=== PATIENT | female | born 1940 | race Caucasian/White ===

== ENCOUNTER 2021-01-26 18:02 | Inpatient (IN) ==
[2021-01-26 19:07] LABS: Basophils % 1.1 %; Eosinophils % 0.4 %; Hematocrit 27.4 % (35.3-44.9); Immature Granulocytes % 0.4 % (0-4); Lymphocytes # 0.6 K/mcL (0.6-4.6); Lymphocytes % 20.4 %; Mean Corpuscular HGB Conc 32.8 g/dL (31.6-35.5); Mean Corpuscular Hemoglobin 30.2 pg (28.0-33.3); Mean Corpuscular Volume 91.9 fL (83.0-100.0); Mean Platelet Volume 10.9 fL (9.4-12.4); Monocytes # 0.6 K/mcL (0.0-1.3); Monocytes % 21.5 %; Neutrophils # 1.6 K/mcL (1.6-8.9); Platelet Count 148 K/mcL (140-400); Red Blood Count 2.98 M/mcL (3.82-4.97); Red Cell Distribution Width 13.8 % (11.5-14.5); Segmented Neutrophils % 56.2 %; White Blood Count 2.8 K/mcL (4.3-11.1)
[2021-01-26 19:17] LABS: INR 5.8; Prothrombin Time 63.7 Seconds (9.4-12.1)
[2021-01-26 19:37] LABS: Albumin 3.4 g/dL (3.5-5.7); Albumin/Globulin Ratio 1.4 (1.1-2.2); Bilirubin,Direct 0.2 mg/dL (0.0-0.2); Bilirubin,Indirect 0.6 mg/dL (0.0-1.0); Bilirubin,Total 0.8 mg/dL (0.3-1.0); Calcium 7.5 mg/dL (8.6-10.3); Globulin 2.4 g/dL (2.4-3.5); Potassium 3.8 mEq/L (3.5-5.1); Total Protein 5.8 g/dL (6.4-8.9); Troponin I 0.07 ng/mL (< 0.04)
[2021-01-26] MEDS ORDERED: Naloxone 0.4 MG/ML INJ IVP PRN (20:54)
[2021-01-26] MEDS ORDERED: Ondansetron 4 MG/2 ML VIAL IVP PRN (20:54)
[2021-01-26] MEDS ORDERED: Azithromycin 500 MG in 0.9 % Sodium Chloride 250 ML IVPB SCH (21:00)
[2021-01-27] MEDS ORDERED: Cefdinir 300 MG CAPSULE PO ONE (00:59)
[2021-01-27] MEDS: cefTRIAXone 2,000 MG in Water for inj. (sterile) 20 ML IVP SCH ×2 (01:33→21:08)
[2021-01-27] MEDS: Pantoprazole 40 MG VIAL IVP SCH ×3 (01:33→18:08)
[2021-01-27] MEDS: Azithromycin 250 MG TABLET PO SCH (01:33)
[2021-01-27 03:22] LABS: Hematocrit 29.6 % (35.3-44.9); Hemoglobin 9.7 g/dL (11.5-15.4); Mean Corpuscular HGB Conc 32.8 g/dL (31.6-35.5); Mean Corpuscular Hemoglobin 30.1 pg (28.0-33.3); Mean Corpuscular Volume 91.9 fL (83.0-100.0); Mean Platelet Volume 11.1 fL (9.4-12.4); Platelet Count 165 K/mcL (140-400); Red Blood Count 3.22 M/mcL (3.82-4.97); White Blood Count 3.5 K/mcL (4.3-11.1)
[2021-01-27 03:34] LABS: Prothrombin Time 65.6 Seconds (9.4-12.1)
[2021-01-27 03:43] LABS: Calcium 7.8 mg/dL (8.6-10.3); Phosphorous 5.9 mg/dL (2.7-4.5)
[2021-01-27 03:55] LABS: Troponin I 0.08 ng/mL (< 0.04)
[2021-01-27] MEDS ORDERED: *HR* Heparin 10,000 UNIT/10 ML VIAL IV PRN (08:20)
[2021-01-27] MEDS ORDERED: 0.9 % Sodium Chloride 250 ML IVC PRN (08:20)
[2021-01-27] MEDS ORDERED: 0.9 % Sodium Chloride 1,000 ML PRIME SCH (08:30)
[2021-01-27 09:59] LABS: Hepatitis B Surface Antibody 20.49 mIU/mL
[2021-01-27 10:10] LABS: Hepatitis B Surface Antigen Nonreactive (Nonreactive)
[2021-01-27] MEDS: hydrALAZINE 25 MG TABLET PO SCH ×2 (10:39→21:08)
[2021-01-27 12:56] LABS: Bilirubin,Urine Negative (Negative); Blood,Urine Negative (Negative); Clarity,Urine Clear (Clear); Color,Urine Yellow (Yellow); Glucose,Urine (UA) Normal (Normal); Hyaline Casts,Urine Many per lpf (None Seen); Ketones,Urine Negative (Negative); Leukocyte Esterase,Urine Trace (Negative); Mucus,Urine Few per lpf (None-Few); Nitrite,Urine Negative (Negative); PH,Urine 5.5 pH Units (5.0-8.0); Protein,Urine Trace mg/dL (Neg-Trace); RBC,Urine 0-3 per hpf (0-3); Specific Gravity,Urine 1.024 (1.010-1.025); Squamous Epithelial Cell,Urine Few per hpf (None-Few); Transitional Epi Cells,Urine Few per hpf (None-Few); Urobilinogen,Urine Normal (Normal)
[2021-01-27] MEDS: Acetaminophen 325 MG TABLET PO PRN (18:18)
[2021-01-27] MEDS ORDERED: Melatonin 3 MG TABLET PO PRN (22:56)
[2021-01-28] MEDS: Acetaminophen 325 MG TABLET PO PRN (00:11)
[2021-01-28] MEDS ORDERED: Perflutren Lipid Microsphere 1.3 ML in 0.9 % Sodium Chloride 8.7 ML IVP PRN (02:16)
[2021-01-28 02:46] LABS: Hemoglobin 10.2 g/dL (11.5-15.4); Mean Corpuscular HGB Conc 32.9 g/dL (31.6-35.5); Mean Corpuscular Hemoglobin 29.9 pg (28.0-33.3); Mean Corpuscular Volume 90.9 fL (83.0-100.0); Mean Platelet Volume 10.7 fL (9.4-12.4); Platelet Count 169 K/mcL (140-400); Red Blood Count 3.41 M/mcL (3.82-4.97); Red Cell Distribution Width 13.8 % (11.5-14.5); White Blood Count 3.2 K/mcL (4.3-11.1)
[2021-01-28 03:08] LABS: Calcium 7.9 mg/dL (8.6-10.3); Potassium 3.5 mEq/L (3.5-5.1)
[2021-01-28] MEDS: Pantoprazole 40 MG VIAL IVP SCH ×2 (06:34→17:10)
[2021-01-28 09:28] LABS: INR 4.1
[2021-01-28 09:35] LABS: Prothrombin Time 45.1 Seconds (9.4-12.1)
[2021-01-28] MEDS: hydrALAZINE 25 MG TABLET PO SCH ×2 (10:07→21:07)
[2021-01-28] MEDS: Calcium Acetate 667 MG CAPSULE PO SCH ×3 (10:07→17:10)
[2021-01-28] MEDS: Azithromycin 250 MG TABLET PO SCH (10:07)
[2021-01-28] MEDS: cefTRIAXone 2,000 MG in Water for inj. (sterile) 20 ML IVP SCH (20:57)
[2021-01-29 03:13] LABS: Hemoglobin 11.1 g/dL (11.5-15.4); Mean Corpuscular HGB Conc 33.6 g/dL (31.6-35.5); Mean Corpuscular Hemoglobin 30.9 pg (28.0-33.3); Mean Corpuscular Volume 91.9 fL (83.0-100.0); Mean Platelet Volume 11.7 fL (9.4-12.4); Platelet Count 193 K/mcL (140-400); Red Blood Count 3.59 M/mcL (3.82-4.97); Red Cell Distribution Width 13.7 % (11.5-14.5)
[2021-01-29 03:26] LABS: INR 5.1; Prothrombin Time 56.6 Seconds (9.4-12.1)
[2021-01-29 03:33] LABS: Calcium 8.5 mg/dL (8.6-10.3); Potassium 3.8 mEq/L (3.5-5.1)
[2021-01-29] MEDS: Pantoprazole 40 MG VIAL IVP SCH (05:03)
[2021-01-29] MEDS ORDERED: 0.9 % Sodium Chloride 250 ML IVC PRN (07:32)
[2021-01-29] MEDS ORDERED: *HR* Heparin 10,000 UNIT/10 ML VIAL IV PRN (07:32)
[2021-01-29] MEDS ORDERED: 0.9 % Sodium Chloride 1,000 ML PRIME SCH (07:45)
[2021-01-29] MEDS: Azithromycin 250 MG TABLET PO SCH (08:25)
[2021-01-29] MEDS: Calcium Acetate 667 MG CAPSULE PO SCH ×3 (08:25→16:57)
[2021-01-29] MEDS: hydrALAZINE 25 MG TABLET PO SCH (08:26)
[2021-01-29] MEDS: Metoprolol XL (24 HR) Succ 25 MG TAB.ER.24H PO SCH (08:27)
[2021-01-29] MEDS ORDERED: Perflutren Lipid Microsphere 1.3 ML in 0.9 % Sodium Chloride 8.7 ML IVP PRN (08:56)
[2021-01-29] MEDS: cefTRIAXone 2,000 MG in Water for inj. (sterile) 20 ML IVP SCH (21:40)
[2021-01-30 02:38] LABS: Basophils % 0.4 %; Eosinophils % 0.2 %; Hematocrit 34.5 % (35.3-44.9); Hemoglobin 11.3 g/dL (11.5-15.4); Immature Granulocytes % 0.7 % (0-4); Lymphocytes % 21.3 %; Mean Corpuscular HGB Conc 32.8 g/dL (31.6-35.5); Mean Corpuscular Hemoglobin 30.3 pg (28.0-33.3); Mean Corpuscular Volume 92.5 fL (83.0-100.0); Mean Platelet Volume 11.7 fL (9.4-12.4); Monocytes # 0.6 K/mcL (0.0-1.3); Monocytes % 13.4 %; Neutrophils # 2.9 K/mcL (1.6-8.9); Platelet Count 194 K/mcL (140-400); Red Blood Count 3.73 M/mcL (3.82-4.97); Red Cell Distribution Width 13.7 % (11.5-14.5); White Blood Count 4.6 K/mcL (4.3-11.1)
[2021-01-30 02:49] LABS: INR 1.1; Prothrombin Time 12.6 Seconds (9.4-12.1)
[2021-01-30 02:57] LABS: Calcium 8.8 mg/dL (8.6-10.3); Large Platelets Present (Not Present); Platelet Estimate Normal (Normal); Potassium 3.5 mEq/L (3.5-5.1)
[2021-01-30] MEDS: Calcium Acetate 667 MG CAPSULE PO SCH ×3 (07:58→16:44)
[2021-01-30] MEDS: Azithromycin 250 MG TABLET PO SCH (07:58)
[2021-01-30] MEDS: Metoprolol XL (24 HR) Succ 25 MG TAB.ER.24H PO SCH (07:58)
[2021-01-30] MEDS ORDERED: *HR* Heparin 5,000 UNIT/ML VIAL IVP PRN ×2 (13:51)
[2021-01-30] MEDS ORDERED: *HR* Heparin 5,000 UNIT/ML VIAL IVP ONE (13:51)
[2021-01-30] MEDS ORDERED: Heparin 25,000UNIT/250ML 1/2NS 25,000 UNIT/250 ML IV.SOLN IVC SCH (14:00)
[2021-01-30 14:40] LABS: Hematocrit 35.6 % (35.3-44.9); Hemoglobin 11.6 g/dL (11.5-15.4); Mean Corpuscular HGB Conc 32.6 g/dL (31.6-35.5); Mean Corpuscular Hemoglobin 30.4 pg (28.0-33.3); Mean Corpuscular Volume 93.4 fL (83.0-100.0); Mean Platelet Volume 11.7 fL (9.4-12.4); Platelet Count 192 K/mcL (140-400); Red Blood Count 3.81 M/mcL (3.82-4.97); Red Cell Distribution Width 13.9 % (11.5-14.5); White Blood Count 4.4 K/mcL (4.3-11.1)
[2021-01-30 14:48] LABS: Heparin anti-factor XA UFH < 0.04 IU/mL (0.30-0.70)
[2021-01-30 14:49] LABS: Prothrombin Time 11.3 Seconds (9.4-12.1)
[2021-01-30] MEDS ORDERED: Warfarin perPT PO PRN (18:00)
[2021-01-30] MEDS ORDERED: *HR* Warfarin 2.5 MG TABLET PO ONE (18:00)
[2021-01-30] MEDS: cefTRIAXone 2,000 MG in Water for inj. (sterile) 20 ML IVP SCH (20:56)
[2021-01-31 05:14] LABS: Hemoglobin 11.3 g/dL (11.5-15.4); Mean Corpuscular HGB Conc 32.3 g/dL (31.6-35.5); Mean Corpuscular Hemoglobin 30.4 pg (28.0-33.3); Mean Corpuscular Volume 94.1 fL (83.0-100.0); Mean Platelet Volume 11.8 fL (9.4-12.4); Platelet Count 191 K/mcL (140-400); Red Blood Count 3.72 M/mcL (3.82-4.97); Red Cell Distribution Width 13.7 % (11.5-14.5)
[2021-01-31 05:24] LABS: INR 1.1; Prothrombin Time 12.4 Seconds (9.4-12.1)
[2021-01-31 05:32] LABS: Calcium 9.1 mg/dL (8.6-10.3); Potassium 3.6 mEq/L (3.5-5.1)
[2021-01-31] MEDS ORDERED: *HR* Heparin 10,000 UNIT/10 ML VIAL IV PRN (07:10)
[2021-01-31] MEDS ORDERED: 0.9 % Sodium Chloride 250 ML IVC PRN (07:10)
[2021-01-31] MEDS ORDERED: 0.9 % Sodium Chloride 1,000 ML PRIME SCH (07:15)
[2021-01-31] MEDS: Calcium Acetate 667 MG CAPSULE PO SCH ×3 (10:21→17:12)
[2021-01-31] MEDS: Metoprolol XL (24 HR) Succ 25 MG TAB.ER.24H PO SCH (13:32)
[2021-01-31] MEDS: Azithromycin 250 MG TABLET PO SCH (13:32)
[2021-01-31] MEDS: Apixaban 5 MG TABLET PO SCH ×2 (13:32→21:31)
[2021-01-31] MEDS ORDERED: *HR* Warfarin 2.5 MG TABLET PO ONE (18:00)
[2021-01-31] MEDS ORDERED: *HR* Warfarin 5 MG TABLET PO ONE (18:00)
[2021-01-31] MEDS: cefTRIAXone 2,000 MG in Water for inj. (sterile) 20 ML IVP SCH (21:30)
[2021-02-01 00:49] VITALS: BP 120/43
== END 2021-02-01 02:30 | DRG 177 ==
LOC: EMEROOARM 18:02 → 2NENU 18:02 → SUATTDRO 20:52 → 2NENU 22:10 → SUATTDRO 01-27 17:18
PROVIDERS: ADMIT Family Medicine; ATTEND Internal Medicine

== ENCOUNTER 2021-02-18 09:32 | Observation (INO) ==
[2021-02-18 10:45] LABS: Hematocrit 23.9 % (35.3-44.9); Hemoglobin 7.8 g/dL (11.5-15.4); Mean Corpuscular HGB Conc 32.6 g/dL (31.6-35.5); Mean Corpuscular Hemoglobin 31.2 pg (28.0-33.3); Mean Corpuscular Volume 95.6 fL (83.0-100.0); Mean Platelet Volume 11.1 fL (9.4-12.4); Platelet Count 177 K/mcL (140-400); White Blood Count 6.1 K/mcL (4.3-11.1)
[2021-02-18 11:04] LABS: INR 1.8; Prothrombin Time 20.1 Seconds (9.4-12.1)
[2021-02-18 11:07] LABS: Albumin 3.5 g/dL (3.5-5.7); Albumin/Globulin Ratio 1.3 (1.1-2.2); Calcium 8.7 mg/dL (8.6-10.3); Globulin 2.8 g/dL (2.4-3.5); Potassium 3.7 mEq/L (3.5-5.1); Total Protein 6.3 g/dL (6.4-8.9); Troponin I 0.04 ng/mL (< 0.04)
[2021-02-18] MEDS ORDERED: Isovue-370 500 ML BOTTLE IVP ONE (11:21)
[2021-02-18 11:34] LABS: Eosinophils # 0.2 K/mcL (0.0-0.6); Lymphocytes # 0.6 K/mcL (0.6-4.6); Monocytes # 0.4 K/mcL (0.0-1.3); Neutrophils # 4.9 K/mcL (1.6-8.9)
[2021-02-18 11:38] LABS: Platelet Estimate Normal (Normal)
[2021-02-18] MEDS ORDERED: 0.9 % Sodium Chloride 250 ML ONE (14:27)
[2021-02-18] MEDS ORDERED: Acetaminophen 325 MG TABLET PO PRN (15:10)
[2021-02-18] MEDS ORDERED: Naloxone 0.4 MG/ML INJ IVP PRN (15:10)
[2021-02-18] MEDS ORDERED: Ondansetron ODT 4 MG TAB.RAPDIS SL PRN (15:10)
[2021-02-18 23:43] LABS: Hematocrit 26.9 % (35.3-44.9); Hemoglobin 8.7 g/dL (11.5-15.4)
[2021-02-19 03:47] LABS: Hematocrit 27.7 % (35.3-44.9); Hemoglobin 9.2 g/dL (11.5-15.4); Mean Corpuscular HGB Conc 33.2 g/dL (31.6-35.5); Mean Corpuscular Hemoglobin 31.1 pg (28.0-33.3); Mean Corpuscular Volume 93.6 fL (83.0-100.0); Mean Platelet Volume 10.7 fL (9.4-12.4); Platelet Count 184 K/mcL (140-400); Red Blood Count 2.96 M/mcL (3.82-4.97); Red Cell Distribution Width 15.9 % (11.5-14.5); White Blood Count 5.1 K/mcL (4.3-11.1)
[2021-02-19 03:54] LABS: INR 1.3; Prothrombin Time 15.3 Seconds (9.4-12.1)
[2021-02-19 04:05] LABS: Calcium 8.6 mg/dL (8.6-10.3); Potassium 3.9 mEq/L (3.5-5.1)
[2021-02-19] MEDS ORDERED: Perflutren Lipid Microsphere 1.3 ML in 0.9 % Sodium Chloride 8.7 ML IVP PRN (05:00)
[2021-02-19] MEDS ORDERED: 0.9 % Sodium Chloride 2,000 ML ONE (06:39)
[2021-02-19] MEDS ORDERED: 0.9 % Sodium Chloride 250 ML IVC PRN (07:37)
[2021-02-19] MEDS ORDERED: 0.9 % Sodium Chloride 1,000 ML PRIME SCH (07:45)
[2021-02-19] MEDS ORDERED: Calcium Acetate 667 MG CAPSULE PO PRN (11:00)
[2021-02-19] MEDS: Calcium Acetate 667 MG CAPSULE PO SCH ×2 (12:47→17:32)
[2021-02-19] MEDS: hydrALAZINE 25 MG TABLET PO SCH (21:25)
[2021-02-20 03:11] LABS: Basophils % 0.7 %; Eosinophils # 0.3 K/mcL (0.0-0.6); Eosinophils % 5.8 %; Hemoglobin 8.4 g/dL (11.5-15.4); Immature Granulocytes % 0.2 % (0-4); Lymphocytes % 24.1 %; Mean Corpuscular HGB Conc 32.3 g/dL (31.6-35.5); Mean Corpuscular Hemoglobin 30.4 pg (28.0-33.3); Mean Corpuscular Volume 94.2 fL (83.0-100.0); Monocytes # 0.9 K/mcL (0.0-1.3); Monocytes % 20.9 %; Neutrophils # 2.1 K/mcL (1.6-8.9); Platelet Count 161 K/mcL (140-400); Red Blood Count 2.76 M/mcL (3.82-4.97); Red Cell Distribution Width 15.9 % (11.5-14.5); Segmented Neutrophils % 48.3 %; White Blood Count 4.3 K/mcL (4.3-11.1)
[2021-02-20 03:25] LABS: Calcium 8.7 mg/dL (8.6-10.3); Potassium 3.2 mEq/L (3.5-5.1)
[2021-02-20 03:30] LABS: % Iron Saturation 15 % (15-50); Iron 28 mcg/dL (50-170); Magnesium 1.8 mg/dL (1.6-2.6); Transferrin 136 mg/dL (203-362)
[2021-02-20 04:03] LABS: Ferritin > 1500 ng/mL (10-120); Folate > 22.3 ng/mL (3.0-16.0); Vitamin B12 621 pg/mL (250-1100)
[2021-02-20] MEDS ORDERED: Iron Sucrose Complex 400 MG in 0.9 % Sodium Chloride 250 ML IVPB ONE (07:09)
[2021-02-20] MEDS ORDERED: Simethicone 40 MG/0.6 ML MLS IR ONE (09:24)
[2021-02-20] MEDS: Calcium Acetate 667 MG CAPSULE PO SCH ×3 (09:58→16:18)
[2021-02-20] MEDS: hydrALAZINE 25 MG TABLET PO SCH ×2 (09:58→22:17)
[2021-02-20] MEDS ORDERED: Isovue-370 500 ML BOTTLE IVP ONE (13:36)
[2021-02-20] MEDS ORDERED: Lidocaine -MPF 2% 5 ML VIAL SQ ONE (13:42)
[2021-02-20] MEDS ORDERED: *HR* Propofol 500 MG/50 ML BOTTLE IVP ONE (13:42)
[2021-02-20] MEDS: Apixaban 5 MG TABLET PO SCH (22:17)
[2021-02-21 05:07] LABS: Hematocrit 26.5 % (35.3-44.9); Hemoglobin 8.5 g/dL (11.5-15.4); Mean Corpuscular HGB Conc 32.1 g/dL (31.6-35.5); Mean Corpuscular Hemoglobin 30.8 pg (28.0-33.3); Mean Platelet Volume 10.7 fL (9.4-12.4); Platelet Count 182 K/mcL (140-400); Red Blood Count 2.76 M/mcL (3.82-4.97); Red Cell Distribution Width 15.9 % (11.5-14.5); White Blood Count 4.8 K/mcL (4.3-11.1)
[2021-02-21 05:38] LABS: Calcium 8.4 mg/dL (8.6-10.3); Potassium 4.5 mEq/L (3.5-5.1)
[2021-02-21] MEDS ORDERED: 0.9 % Sodium Chloride 250 ML IVC PRN (07:41)
[2021-02-21] MEDS ORDERED: 0.9 % Sodium Chloride 1,000 ML PRIME SCH (07:45)
[2021-02-21] MEDS: hydrALAZINE 25 MG TABLET PO SCH (08:08)
[2021-02-21] MEDS: Calcium Acetate 667 MG CAPSULE PO SCH ×2 (11:07)
[2021-02-21] MEDS: Apixaban 5 MG TABLET PO SCH (11:07)
[2021-02-21 12:40] VITALS: BP 132/67
== END 2021-02-21 13:43 | disposition home or self-care (01) ==
LOC: 2ANU 09:32 → EMEROOARM 09:32 → SUATTDRO 15:00 → 2ANU 16:18
PROVIDERS: ADMIT Internal Medicine; ATTEND Internal Medicine

== ENCOUNTER 2022-01-27 04:36 | Observation (INO) ==
[2022-01-27] MEDS ORDERED: Ketorolac 30 MG/ML VIAL IVP ONE (04:45)
[2022-01-27] MEDS ORDERED: 0.9 % Sodium Chloride 1,000 ML IVC ONE (04:45)
[2022-01-27] MEDS ORDERED: Ondansetron 4 MG/2 ML VIAL IVP ONE (04:45)
[2022-01-27] MEDS ORDERED: Isovue-370 500 ML BOTTLE IVP ONE (04:46)
[2022-01-27 05:59] LABS: Basophils % 0.5 %; Eosinophils # 0.1 K/mcL (0.0-0.6); Eosinophils % 1.8 %; Hematocrit 31.6 % (35.3-44.9); Hemoglobin 10.3 g/dL (11.5-15.4); Immature Granulocytes % 0.2 % (0-4); Lymphocytes # 0.6 K/mcL (0.6-4.6); Lymphocytes % 9.6 %; Mean Corpuscular HGB Conc 32.6 g/dL (31.6-35.5); Mean Corpuscular Hemoglobin 30.8 pg (28.0-33.3); Mean Corpuscular Volume 94.6 fL (83.0-100.0); Mean Platelet Volume 11.8 fL (9.4-12.4); Monocytes # 0.7 K/mcL (0.0-1.3); Monocytes % 10.1 %; Neutrophils # 5.2 K/mcL (1.6-8.9); Platelet Count 164 K/mcL (140-400); Red Blood Count 3.34 M/mcL (3.82-4.97); Red Cell Distribution Width 15.3 % (11.5-14.5); Segmented Neutrophils % 77.8 %; White Blood Count 6.7 K/mcL (4.3-11.1)
[2022-01-27 06:16] LABS: Albumin 4.2 g/dL (3.5-5.7); Albumin/Globulin Ratio 1.7 (1.1-2.2); Bilirubin,Direct 0.2 mg/dL (0.0-0.2); Bilirubin,Indirect 0.4 mg/dL (0.0-1.0); Bilirubin,Total 0.6 mg/dL (0.3-1.0); Calcium 9.3 mg/dL (8.6-10.3); Globulin 2.5 g/dL (2.4-3.5); Potassium 4.5 mEq/L (3.5-5.1); Total Protein 6.7 g/dL (6.4-8.9)
[2022-01-27 06:23] LABS: INR 1.4; Prothrombin Time 15.6 Seconds (9.4-12.1)
[2022-01-27 06:26] LABS: Activated Partial Thrombo Time 39.1 Seconds (26.0-36.0)
[2022-01-27 09:02] LABS: Troponin I 0.04 ng/mL (< 0.04)
[2022-01-27] MEDS ORDERED: Ondansetron 4 MG/2 ML VIAL IVP PRN (10:00)
[2022-01-27] MEDS ORDERED: Naloxone 0.4 MG/ML INJ IVP PRN (10:00)
[2022-01-27] MEDS ORDERED: *HR* OxyCODONE/APAP 5/325 TABLET PO PRN (10:01)
[2022-01-27] MEDS: Calcium Acetate 667 MG CAPSULE PO SCH ×2 (11:47→16:06)
[2022-01-27 14:35] LABS: Basophils % 0.5 %; Eosinophils # 0.1 K/mcL (0.0-0.6); Eosinophils % 2.2 %; Hemoglobin 9.9 g/dL (11.5-15.4); Immature Granulocytes % 0.3 % (0-4); Lymphocytes # 1.2 K/mcL (0.6-4.6); Lymphocytes % 18.6 %; Mean Corpuscular Hemoglobin 30.8 pg (28.0-33.3); Mean Corpuscular Volume 93.5 fL (83.0-100.0); Mean Platelet Volume 11.5 fL (9.4-12.4); Monocytes # 0.9 K/mcL (0.0-1.3); Platelet Count 151 K/mcL (140-400); Red Blood Count 3.21 M/mcL (3.82-4.97); Red Cell Distribution Width 15.4 % (11.5-14.5); Segmented Neutrophils % 63.4 %; White Blood Count 6.3 K/mcL (4.3-11.1)
[2022-01-27] MEDS: hydrALAZINE 25 MG TABLET PO SCH (19:50)
[2022-01-28 01:19] LABS: Calcium 8.8 mg/dL (8.6-10.3); Potassium 4.8 mEq/L (3.5-5.1)
[2022-01-28 07:01] VITALS: PULSE 77; O2SAT 91
[2022-01-28] MEDS ORDERED: *HR* Heparin 10,000 UNIT/10 ML VIAL IV PRN (08:26)
[2022-01-28] MEDS ORDERED: 0.9 % Sodium Chloride 250 ML IVC PRN (08:26)
[2022-01-28] MEDS ORDERED: 0.9 % Sodium Chloride 1,000 ML PRIME SCH (08:30)
[2022-01-28] MEDS ORDERED: Renal Vitamin 1 CAP CAPSULE PO SCH (09:00)
[2022-01-28] MEDS: Calcium Acetate 667 MG CAPSULE PO SCH ×2 (09:06→11:52)
[2022-01-28] MEDS: hydrALAZINE 25 MG TABLET PO SCH (09:07)
[2022-01-28] MEDS: Metoprolol XL (24 HR) Succ 25 MG TAB.ER.24H PO SCH ×2 (09:11→14:04)
[2022-01-28 10:56] LABS: Hepatitis B Surface Antibody 19.78 mIU/mL
[2022-01-28 11:06] LABS: Hepatitis B Surface Antigen Nonreactive (Nonreactive)
[2022-01-28 14:16] VITALS: TEMP 98.1
[2022-01-28 14:25] VITALS: BP 154/72
== END 2022-01-28 14:48 | disposition home or self-care (01) ==
LOC: EMEROOARM 04:36 → 2ANU 04:36 → SUATTDRO 10:01 → 2ANU 10:56
PROVIDERS: ADMIT Internal Medicine; ATTEND Student in an Organized Health Care Education/Training Program